=== PATIENT | male | born 1975 | race Caucasian/White ===

== ENCOUNTER 2016-10-30 05:38 | Emergency (ER) | payer MEDICAID ==
[2016-10-30 08:25] VITALS: BP 152/99
== END 2016-10-30 08:25 | disposition home or self-care (01) ==
LOC: ED 05:38
DX: B34.9 Viral infection, unspecified (principal); I10 Essential (primary) hypertension; Z88.0 Allergy status to penicillin
CPT/HCPCS: J7512; J7613; J7644

== ENCOUNTER 2016-11-03 14:42 | Emergency (ER) | payer MEDICAID ==
[2016-11-03 17:21] VITALS: BP 151/80
== END 2016-11-03 17:21 | disposition home or self-care (01) ==
LOC: ED 14:42
DX: J20.9 Acute bronchitis, unspecified (principal); I10 Essential (primary) hypertension; Z79.899 Other long term (current) drug therapy; Z88.0 Allergy status to penicillin

== ENCOUNTER 2018-01-31 13:07 | Emergency (ER) | payer MEDICAID ==
[~2018-01-31] VITALS: Ht 167.6 cm; Wt 147.0 kg
[2018-01-31 13:23] VITALS: Ht 167.6 cm; Wt 147.0 kg
[2018-01-31 14:50] VITALS: BP 157/80
== END 2018-01-31 14:50 | disposition home or self-care (01) ==
LOC: ED 13:07
DX: R21 Rash and other nonspecific skin eruption (principal); I10 Essential (primary) hypertension; E66.01 Morbid (severe) obesity due to excess calories; Z68.43 Body mass index [BMI] 50.0-59.9, adult; Z88.0 Allergy status to penicillin

== ENCOUNTER 2019-01-13 22:51 | Emergency (ER) | payer BC ==
[~2019-01-13] VITALS: Ht 170.2 cm; Wt 150.1 kg
[2019-01-13 22:55] VITALS: Ht 170.2 cm; Wt 150.1 kg
[2019-01-14 00:49] VITALS: BP 122/64
== END 2019-01-14 00:49 | disposition home or self-care (01) ==
LOC: ED 22:51
DX: L50.9 Urticaria, unspecified (principal); I10 Essential (primary) hypertension; Z88.0 Allergy status to penicillin
CPT/HCPCS: J1200; J2930

== ENCOUNTER 2019-11-03 02:18 | Emergency (ER) | payer BC ==
[~2019-11-03] VITALS: Ht 170.2 cm; Wt 157.9 kg
[2019-11-03 05:35] VITALS: BP 127/84
== END 2019-11-03 05:35 | disposition home or self-care (01) ==
LOC: ED 02:18
DX: T78.40XA Allergy, unspecified, initial encounter (principal); X58.XXXA Exposure to other specified factors, initial encounter; I10 Essential (primary) hypertension; Z88.0 Allergy status to penicillin; Z91.013 Allergy to seafood
CPT/HCPCS: J1200; J2930; J3490